=== PATIENT | female | born 1975 | race Caucasian/White ===

== ENCOUNTER 2019-09-09 10:06 | Observation (INO) ==
[2019-09-09] MEDS ORDERED: ASPIRIN PO ONE (10:14)
[2019-09-09 10:39] LABS: BASO# 0.04 X1000 (0.0-0.2); BASO% 0.6 % (0.0-0.8); EOS# 0.41 X1000 (0.0-0.7); EOS% 5.7 % (0.0-10.0); HEMATOCRIT 37.5 % (37.0-47.0); HEMOGLOBIN 11.9 g/dL (12.0-16.0); IMM GRAN# 0.01 X1000 (0.0-0.04); IMM GRAN% 0.1 % (0.0-0.5); LYMPH# 2.59 X1000 (1.2-3.4); MCH 28.9 PG (27-31); MCHC 31.7 g/dL (33-37); MONO# 0.64 X1000 (0.11-0.59); MONO% 8.9 % (1.7-9.3); MPV 9.9 FL (7.4-10.4); NEUT% 48.7 % (42.2-75.2); PLT 327 X1000 (130-400); RBC 4.12 XMIL (4.2-5.4); RDW 12.8 % (11.5-14.5); WBC 7.19 X1000 (4.8-10.8)
[2019-09-09] MEDS ORDERED: NITROGLYCERIN SL PRN (10:54)
[2019-09-09 11:03] LABS: INR 0.87; PROTIME 12.2 Seconds (11.0-16.0)
[2019-09-09 11:04] LABS: PTT 27.5 Seconds (22.3-41.8)
[2019-09-09 11:15] LABS: AGAP 11; ALBUMIN 4.3 g/dL (3.5-5.0); ALKALINE PHOSPHATASE 49 U/L (32-104); BUN 12 mg/dL (8-22); CALCIUM 9.1 mg/dL (8.8-10.2); CHLORIDE 106 mmol/L (98-107); CK PROFILE 53 U/L (24-173); COSMO 280; CREATININE 0.5 mg/dL (0.5-0.9); ESTIMATED GFR > 60; GLUCOSE 88 mg/dL (70-104); GOT 23 U/L (10-30); GPT 38 U/L (10-36); POTASSIUM 3.9 mmol/L (3.5-5.1); SODIUM 141 mmol/L (136-145); TCO2 24 mmol/L (25-35); TOTAL BILIRUBIN < 0.15 mg/dL (0.20-1.00); TOTAL PROTEIN 6.8 g/dL (6.3-8.3)
[2019-09-09] MEDS ORDERED: ZOFRAN IV PRN (12:20)
[2019-09-09] MEDS ORDERED: ZOFRAN IV ONE (12:22)
[2019-09-09] MEDS ORDERED: DEMEROL IV ONE (12:22)
[2019-09-10] MEDS ORDERED: PRILOSEC PO SCH (07:00)
[2019-09-10 07:02] LABS: CHOLESTEROL 146 mg/dL (0-200); HDL 50 mg/dL (45-65); LDL 67 mg/dL; TRIGLYCERIDES 143 mg/dL (35-135); VLDL 29 mg/dL
[2019-09-10] MEDS ORDERED: ASPIRIN PO SCH (09:00)
[2019-09-10 16:00] VITALS: BP 128/73
== END 2019-09-10 16:45 | disposition home or self-care (01) ==
LOC: P.ED 10:06 → SUATTDRO 10:07 → INTOOBSV 10:07 → P.MEDSURG 10:07
PROVIDERS: ATTEND Family Medicine